=== PATIENT | female | born 1940 | race Caucasian/White ===

== ENCOUNTER 2018-04-29 19:37 | Emergency (ER) | payer MEDICARE, SELFPAY ==
[2018-04-29 19:38] VITALS: BP 153/116; PULSE 81; RESP 22; TEMP 36.8; BMI 23.6
--- NOTE | 2018-04-29 19:51 | EKG12_ITS ---
Test Reason : CP Blood Pressure : / mmHG Vent. Rate : 068 BPM Atrial Rate : 068 BPM P-R Int : 156 ms QRS Dur : 074 ms QT Int : 396 ms P-R-T Axes : 037 -24 024 degrees QTc Int : 421 ms Normal sinus rhythm Leftward axis Confirmed by BLU PECK, ZACKARY ([id number]), development editor JESSICA KNAPP ([id number]) on 05/02/2018 11:26:07 AM Referred By: Confirmed By:ZACKARY HURT MD
--- NOTE | 2018-04-29 19:51 | CT_ITS ---
STUDY: CT ABDOMEN AND PELVIS WITHOUT CONTRAST REASON FOR EXAM: Female, 77 years old. Left lower quadrant pain RADIATION DOSAGE (If Supplied By Facility): CTDIvol = ( 7.01 ) mGy, DLP = ( 318.61 ) mGycm TECHNIQUE: Transaxial images were obtained from the dome of the diaphragm to the symphysis pubis without oral contrast, and without intravenous contrast. Sagittal and coronal images were reconstructed. Individualized dose optimization techniques were used for this CT. COMPARISON: 12/31/2016 FINDINGS: The visualized lung bases are unremarkable. The visualized portions of the heart are within normal limits. Normal liver. There is non-visualization of the gallbladder, which may be secondary to either contraction or a prior cholecystectomy. Normal spleen. Normal pancreas. Normal bilateral adrenal glands. Normal right kidney. Stable punctate nonobstructing left nephrolithiasis. Otherwise, normal left kidney. Stable moderate hiatal hernia. Otherwise, normal stomach Normal small intestine. There are multiple colonic diverticula consistent with diverticulosis. There is non-visualization of the appendix. There is diffuse atherosclerotic calcification of the abdominal aorta, without a demonstrated aneurysm. Normal inferior vena cava. Normal retroperitoneum. Normal urinary bladder. There is absence of the uterus consistent with a prior hysterectomy. Normal abdominal wall. There are diffuse degenerative changes of the visualized lumbar spine. Mild compression deformity of the superior endplate of L4, chronic in nature. CT/Abdomen/Pelvis without Cont IMPRESSION: 1. No acute findings or the abdomen and pelvis. No evidence of diverticulitis 2. Nonvisualized gallbladder 3. No evidence of obstruction Electronically Signed: Dean Garcia DO at 20:51 EDT Tel , Service support ,
--- NOTE | 2018-04-29 20:16 | RAD_ITS ---
STUDY: X-RAY CHEST REASON FOR EXAM: Female, 77 years old. Chest pain TECHNIQUE: Single AP portable view of the chest. COMPARISON: None. FINDINGS: Moderately sized hiatal hernia. The lungs are clear and expanded. There is no demonstrated pleural abnormality. There is borderline cardiomegaly. Normal mediastinum and callie. Normal visualized pulmonary arteries. Normal visualized aortic arch and descending thoracic aorta. Normal visualized thoracic spine. Normal visualized ribs, clavicles, and shoulders. There is no demonstrated abnormality of the visualized soft tissue structures of the upper abdomen. RAD/Chest 1 View (Portable) IMPRESSION: No acute cardiopulmonary disease. Moderate hiatal hernia. Electronically Signed: Dean Garcia DO at 20:32 EDT Tel , Service support ,
[2018-04-29] MEDS: 0.9% Normal Saline 1,000 ML 150 ML IV (20:22)
[2018-04-29 20:33] LABS: Absolute Lymphocyte Count 1.31 X10^3/ul (0.83-4.51); Basophil# 0.02 X10^3/uL; Basophil% 0.3 % (0-1); Eosinophil# 0.09 X10^3/uL; Eosinophils% 1.3 % (0-5); Hematocrit 40.6 % (37-47); Hemoglobin 13.1 g/dl (12.0-15.0); Lymphocyte # 1.31 X10^3/ul (4.0); Lymphocyte % 18.4 % (19-41); Mean Corp Hgb Conc 32.3 g/gl (32-36); Mean Corpuscular Hgb 30.5 pg (27.0-32.0); Mean Corpuscular Volume 94.4 fL (81-99); Mean Platelet Vol. 9.5 fl (6.2-12.0); Monocyte# 0.71 X10^3/uL; Neutrophil # 4.99 X10^3/uL (2.7-7.7); Platelet Count 253 K/mm3 (150-450); RBC Distribution Width SD 44.3 fl (35.1-43.9); White Blood Count 7.1 K/mm3 (4.4-11.0)
[2018-04-29 20:36] LABS: POSITIVE COUNT NO; POSITIVE DIFFERENTIAL NO; POSITIVE MORPHOLOGY NO
[2018-04-29 20:57] LABS: Anion Gap 9 (5-15); BUN 13 mg/dL (7-18); BUN/Creat Ratio 13.8 RATIO (10-20); Calcium,Total 8.9 mg/dL (8.5-10.1); Chloride 109 mmol/L (98-107); Creatinine, Serum 0.94 mg/dL (0.55-1.02); EST Glomerular Filtration Rate 62 mL/min (>60); Est Glom Filt Rate - Afr Amer 74 mL/min (>60); Estimated Creatinine Clearance 38.42 ml/min; Glucose 117 mg/dL (74-106); Sodium Level 141 mmol/L (136-145)
[2018-04-29 22:25] LABS: Bacteria 0 SEEN /hpf (None Seen); Mucous, Urine 0 SEEN /hpf (<or=2+); Red Blood Cells-Urine 0 SEEN /hpf (0-5); White Blood Cells 0 SEEN /hpf (0-5)
[2018-04-29 22:31] LABS: Color, Urine Yellow (Yellow); Glucose, Dipstick Normal (Normal); Ketone-Dipstick Negative (Negative); Leukocyte Esterase-Dipstick Negative /ul (Negative); Nitrite-Dipstick Negative (Negative); Occult Blood-Urine Negative /ul (Negative); Protein-Dipstick Negative (Negative); Urine Bilirubin Dipstick Negative (Negative); Urine Clarity Clear (Clear); Urine Urobilinogen Normal (Normal)
[2018-04-29 22:38] LABS: Squamous Epithelial Cells - UA 0-5 SEEN /hpf (5-10)
--- NOTE | 2018-04-29 22:46 | ED.DCSUM_ITS ---
- ER Visit Summary Date of Service: 04/29/18 Chief Complaint: Abdominal pain History of Present Illness: The patient is a 77 F is had problems with intermittent lower abdominal pain for some time. Today she had a lower abdominal pain but then it radiated to the epigastric area near her heart. This concerned her so she came in. She denies nausea, vomiting, or diarrhea. She denies fever or chills. She has not had urinary symptoms. Physical Examination: Blood pressure on arrival is 153/116, other vitals normal. Patient sitting upright in bed no acute distress. Head neck examination unremarkable. Heart is regular rate and rhythm. lung sounds clear. Abdomen is soft nontender. She has active bowel sounds throughout. Test Results: Chest x-ray shows no acute cardiopulmonary disease. There is a moderate hiatal hernia noted. CT flank shows no acute findings. EKG is sinus at 68 with no sign of acute ischemia. CBC and chemistry studies unremarkable. Urinalysis normal. Emergency Department Course and Treatment: Patient received IV fluids here. On repeat evaluation she is resting comfortably. I did ensure the patient is currently on an antacid for her hiatal hernia. She will continue this. Treatment Plan: [] Disposition: Discharge Impression: 1. Abdominal pain, uncertain etiology 2. Hiatal hernia This note was generated with [employer] dictation software. It may contain incorrect words, spelling, and punctuation that were not noted in review of the chart prior to signing ED Disposition - Plan for ED Patient: Disposition: Home or Assisted Living Chief Complaint: Abd Pain Instructions: What Is a Hiatal Hernia?, ED Abdominal Pain Unkn Cause Referrals: Barrington Flores MD [Primary Care Provider] - 3-5 Days if not improving
--- NOTE | 2018-04-29 22:46 | ED.DEP ---
ED Disposition - Plan for ED Patient: Disposition: Home or Assisted Living Chief Complaint: Abd Pain Instructions: ED Abdominal Pain Unkn Cause, What Is a Hiatal Hernia? Referrals: Barrington Flores MD [Primary Care Provider] - 3-5 Days if not improving
[2018-04-29 23:04] VITALS: BP 155/74; PULSE 74; PULSE 76; RESP 16; O2SAT 95
== END 2018-04-29 23:10 | disposition home or self-care (01) ==
PROVIDERS: Emergency Provider Emergency Medicine; Family Provider Internal Medicine; PCP Internal Medicine
DX: K44.9 Diaphragmatic hernia without obstruction or gangrene (principal); R10.30 Lower abdominal pain, unspecified; Z87.891 Personal history of nicotine dependence
CPT/HCPCS: 71045; 74176; 80048; 81001; 85025; 93005; 96360; 99285; J7030

== ENCOUNTER → 2019-08-22 | Outpatient (CLI) | payer MEDICARE, SELFPAY ==
--- NOTE | 2019-08-22 06:54 | CT_ITS ---
STUDY: CT SCAN RIGHT HIP AND PELVIS REASON FOR EXAM: Female, 79 years old. RIGHT HIP PAIN. [facility] PROTOCOL RADIATION DOSAGE (If Supplied By Facility): CTDIvol = ( 13.79 ) mGy, DLP = ( 788.57 ) mGycm. Individualized dose optimization techniques were used for this CT.? TECHNIQUE: 2.5 mm helical cuts were performed through the pelvis without contrast. MPR performed. COMPARISON: CT scan of the abdomen and pelvis from 04/29/2018 FINDINGS: The bones are demineralized. Degenerative changes noted in the visualized lumbar spine. There is symmetric SI joint arthrosis. No demonstrated fracture or suspicious lesion in the sacrum, coccyx or either iliac bone. There is severe bilateral hip arthrosis. Surgical hardware in the left femur from previous subcapital femoral neck fracture intact and free of complication, that fracture has healed. There is no acute fracture in either femur or the pelvis. Coronal recon images show subchondral sclerotic changes and cyst formation in both the right femoral head and acetabulum, there is slight flattening of the right femoral head. These findings are consistent with AVN. There are small degenerative spurs on the posterior and anterior acetabulum. There are subchondral sclerotic changes in the left acetabulum and left femoral head but not to the degree noted on the right and there is no left femoral head flattening. The soft tissue windows show colonic diverticulosis without CT evidence of acute diverticulitis. No free fluid or air noted. No hernia or adenopathy noted. CT/Extremity Lower without Contra IMPRESSION: Severe right hip arthrosis with changes consistent with AVN. Slightly less severe left hip arthrosis, there are also changes suggestive of AVN in the left hip but not to the extent noted on the right. No demonstrated femoral or pelvic fracture Colonic diverticulosis Electronically Signed: Kendrick Jay MD at 8:30 EST , Service support ,
== END | disposition home or self-care (01) ==
PROVIDERS: PCP Internal Medicine; Referring Provider Specialist; Visit Provider Specialist
DX: M16.11 Unilateral primary osteoarthritis, right hip (principal); M87.851 Other osteonecrosis, right femur
CPT/HCPCS: 73700

== ENCOUNTER 2019-08-27 05:13 | Day surgery (SDC) | payer MEDICARE, SELFPAY ==
[2019-08-15 15:23] VITALS: BP 141/66; PULSE 80; RESP 17; TEMP 37.1; O2SAT 96; BMI 23.8
--- NOTE | 2019-08-15 15:46 | SDCEKG_ITS ---
Test Reason : Blood Pressure : / mmHG Vent. Rate : 069 BPM Atrial Rate : 069 BPM P-R Int : 160 ms QRS Dur : 072 ms QT Int : 420 ms P-R-T Axes : 046 -29 010 degrees QTc Int : 450 ms Somatic vs. motion Artifiact Sinus rhythm Leftward [place] Poor R-wave progression Confirmed by BLU PECK, ZACKARY ([id number]), editor publications FRANSICO FARNSWORTH ([id number]) on 08/19/2019 8:15:46 AM Referred By: KASI THOMPSON Confirmed By:ZACKARY HURT MD
[2019-08-15 17:05] LABS: Absolute Lymphocyte Count 1.49 X10^3/uL (0.83-4.51); Absolute Neutrophil Count 4.6 X10^3/uL (2.0-7.7); Basophil# 0.02 X10^3/uL; Basophil% 0.3 % (0-1); Eosinophil# 0.07 X10^3/uL; Hematocrit 44.6 % (37-47); Hemoglobin 13.9 g/dL (12.0-15.0); Lymphocyte # 1.49 X10^3/ul (4.0); Lymphocyte % 21.9 % (19-41); Mean Corp Hgb Conc 31.2 g/dL (32-36); Mean Corpuscular Hgb 29.7 pg (27.0-32.0); Mean Corpuscular Volume 95.3 fL (81-99); Mean Platelet Vol. 9.4 fl (6.2-12.0); Monocyte% 8.8 % (0-10); NRBC Flagged by Analyzer 0 % (0-5); Neutrophil % 67.9 % (47-70); Platelet Count 290 K/mm3 (150-450); RBC Distribution Width CV 12.7 % (11.6-14.6); RBC Distribution Width SD 44.7 fl (35.1-43.9); Red Blood Count 4.68 M/mm3 (4.2-5.4); White Blood Count 6.8 K/mm3 (4.4-11.0)
[2019-08-15 17:10] LABS: International Normalized Ratio 1.1; Prothrombin Time (Protime)PT. 13.9 SECONDS (11.7-14.9)
[2019-08-15 17:11] LABS: Partial Thromboplast Time 29.8 Seconds (24.1-36.2)
[2019-08-15 17:12] LABS: AST(SGOT) 17 U/L (15-37); Alanine Aminotransfer ALT/SGPT 22 U/L (13-56); Alkaline Phosphatase 106 U/L (45-117); Anion Gap 4 (5-15); BUN 20 mg/dL (7-18); BUN/Creat Ratio 22.7 RATIO (10-20); Bilirubin, Direct 0.18 mg/dL (0.00-0.30); Calcium,Total 9.5 mg/dL (8.5-10.1); Chloride 113 mmol/L (98-107); Creatinine, Serum 0.88 mg/dL (0.55-1.02); EST Glomerular Filtration Rate 66 mL/min (>60); Est Glom Filt Rate - Afr Amer 80 mL/min (>60); Estimated Creatinine Clearance 37.84 ml/min; Globulin 3.7 g/dL (2.2-4.2); Glucose 133 mg/dL (74-106); Potassium 3.6 mmol/L (3.5-5.1); Protein, Total 7.7 g/dL (6.4-8.2); Sodium Level 142 mmol/L (136-145)
--- NOTE | 2019-08-16 06:47 | PCM.HP.BLA ---
History and Physical History and Physical [facility] Patient Name: Glenda Haile : 1940 From: RORO WILSON PA-C DATE OF SURGERY: 08/27/2019 SCHEDULED PROCEDURE: right total hip arthroplasty HISTORY OF PRESENT ILLNESS: Preoperative history physical exam was performed on August 15, 2019. This is a 79-year-old female who has been having ongoing pain in the right hip for over 2 years. She did have a fall back in December 2017. She does have history of a previous left hip fracture with surgical fixation. Patient's right hip can reach as high as a 9/10. Pain has been intermittent and aching. Patient states she has increased pain going up and down stairs, walking, sitting. She has difficult time with activities of daily living including bathing/showering, getting dressed, housework, and shopping. Pain is located in the right groin and anterior thigh. Patient has fallen in the past. She has tried heat with minimal relief. She has tried oral medications consisting of diclofenac from the primary care physician, minimal to no relief. Patient has required the use of a cane, walker, and wheelchair for the past several years. She denies previous surgery on the right hip. Patient has obtain surgical clearance from the primary care physician Dr. Flores. She has medical history pertinent for hypertension, gastroesophageal reflux disease, thyroid complications, tremors. Patient states they did find an enlarged thyroid and will require removal. He denies any chest pain, shortness of breath, fevers chills, recent infections. After failing conservative measures and discussing treatment options with Dr. Paul Dill, the patient does wish to proceed with a right total hip arthroplasty. REVIEW OF SYSTEMS: ROS: Const: Denies change in appetite, fever and weight change. CV: Denies chest pain, heart murmur and irregular heartbeat. Resp: Denies cough, pneumonia, shortness of breath, tuberculosis and wheezing. GI: Reports constipation, but denies diarrhea, heartburn, nausea, rectal itching, bloody stools and vomiting. : Denies incontinence. Musculo: Reports trouble walking, but denies leg swelling, pain and weakness. Skin: Denies Raynaud's, history of shingles and tattoo. Neuro: Denies ambulatory dysfunction, dizziness, numbness/tingling and tremor. Psych: Denies anxiety, insomnia and stress. Davin/Lymph: Denies anemia, bleeding/bruising tendency and past transfusion. Reviewed, no changes. PAST MEDICAL HISTORY: Advance Care Plan: No Advance Directives Effective Date: 07/17/2019 PMH: Medical Problems: Arthritis, Hard of Hearing, High Blood Pressure, Osteoporosis, Thyroid Disease Accidents: Fracture - HIP AND ELBOW Surgical Hx: Knee Arthroscopy Lt - (1989) Anesthesia Complications: Waking Up Assistive Devices: Glasses, Dentures, Cane, Walker Reviewed, no changes. SOCIAL HISTORY: SH: Marital: .Occupation: Retired.Work Status: Retired.Hand Dominance: Right-handed. Personal Habits: Cigarette Use: Former.Smokeless Tobacco: Never Used Smokeless Tobacco.E-Cigarette Use: Never used.Alcohol: Denies use.Drug Use: Denies Use.Enjoy Exercising: Never Exercises. Reviewed, no changes. VITALS: Ht: 60 Wt: 122lb Wt k.339 BMI: 23.8 BP: 110/68 Pulse: 72 Resp: 12 T: 99.3 T: 37.4C ALLERGIES: No Known Drug Allergy MEDICATIONS: Diclofenac Potassium 50 mg 2 PO qd, Vitamin D 50 mcg (2000 Ut) 1 PO qd, Amlodipine Besylate 10 mg 1 by mouth every day, Levothyroxine Sodium 75 mcg 1 by mouth every day, Omeprazole 40 mg 1 by mouth every day, Latanoprost 0.005 % 2 drops each eye daily PRE-OP EXAM: General appearance:NORMAL Other: Eyes: Conjunctivae and lids: NORMAL Pupils: ERR Ears, Nose, Mouth, and Throat: NORMAL Other: Inspection of lips, teeth and gums: NORMAL Other: Neck: Examination of neck: no masses noted. Respiratory: Assessment of respiratory effort: NORMAL Other: Auscultation of lungs: clear to auscultation no wheezes, rhonchi or rales. Cardiovascular: Auscultation of heart: regular rate and rhythm, no murmurs, gallops or rubs. Exam of carotid arteries: NORMAL Other: Gastrointestinal: Exam of abdomen: soft, nontender, nondistended bowel sounds present. PHYSICAL EXAMINATION: Patient presents to preoperative visit in a wheelchair. She has increased pain with any range of motion of the right hip. There is obligatory external rotation with flexion. Patient has a 10 flexion contracture. Flexion 80, internal rotation 15, external rotation 30. Hip strength 3/5. Right lower extremity is 3 mm shorter compared to the left. Sensation intact to light touch. IMAGING STUDIES: X-rays of the right hip reveal joint space narrowing with subchondral sclerosis and osteophyte formation as well as collapse of the subchondral bone of the weightbearing surface of the femoral head consistent with severe osteoarthritis with evidence of avascular necrosis. there is also evidence of severe left hip osteoarthritis with previous 3 cannulated screws from fracture. IMPRESSION: 1. 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 Left hip osteoarthritis with previous surgery 3. Hypertension 4. Gastroesophageal reflux disease 5. Hypothyroidism 6. Essential tremors PLAN: Dr. Paul Dill did discuss and review with the patient all treatment options including surgical versus nonsurgical options. Patient does wish to proceed with the above-stated procedure. Potential risks, benefits, and complications of the procedure were discussed in detail including but not limited to , infection, nerve and blood vessel damage, persistent pain, numbness, tingling, paresthesias, blood clot, pulmonary embolism, and requirement for possible further surgery. The patient expressed full understanding and has no further questions for the doctor. Patient does agree to proceed with the above-stated procedure and has signed the surgery consent form. This dictation was created using voice recognition software. Phonetic and/or grammatical errors may exist. ___ I have re-examined the patient. There are no clinical changes since date of exam. ___ See progress notes for changes. ___ Dictated on admission Date: Time: Signature:
[2019-08-27] VITALS (20 sets, daily range): BP systolic 101–137; BP diastolic 50–95; PULSE 73–98; RESP 16–18; TEMP 36.6–36.9; O2SAT 92–98; BMI 23.8
[2019-08-27] MEDS: Magnesium Sulfate 4gm/100mL 4 GM/100 ML IV.SOLN. IV (06:06)
[2019-08-27] MEDS: Celecoxib 200 MG Capsule 400 MG PO (06:07)
[2019-08-27] MEDS: Gabapentin 600 MG Tablet PO (06:07)
[2019-08-27] MEDS: Acetaminophen 500 MG Tablet 1000 MG PO (06:08)
[2019-08-27 06:45] LABS: Bedside Glucose 185 mg/dL (70-110)
[2019-08-27] MEDS: Lactated Ringers 1,000 ML 125 ML IV ×3 (06:50→11:15)
[2019-08-27] MEDS: Lactated Ringers 1,000 ML 100 ML IV (06:58)
[2019-08-27 07:56] LABS: Bedside Glucose 85 mg/dL (70-110)
--- NOTE | 2019-08-27 08:14 | RAD_ITS ---
STUDY: X-RAY CHEST REASON FOR EXAM: Female, 79 years old. Low blood pressure, SOB TECHNIQUE: PA and lateral views of the chest. COMPARISON: Comparison is made with prior examination dated April 29, 2018. FINDINGS: EKG electrodes are seen. There is tracheal deviation towards the left side of the midline. This is suggestive of an enlarged left lobe of the thyroid gland. Minimal increased linear markings at the left lung base suggestive of mild scarring. This is unchanged. There is no demonstrated pleural abnormality. Normal size heart. Normal mediastinum and callie. Normal visualized pulmonary arteries. There is atherosclerotic calcification of the aortic arch with tortuosity. There are diffuse degenerative changes of the visualized thoracic spine. There is degenerative osteoarthritis of the bilateral shoulders. Large hiatal hernia. RAD/Chest PA and Lateral IMPRESSION: Stable examination. Large hiatal hernia. Findings suggestive of enlargement of the left lobe of the thyroid. Electronically Signed: Humberto Jensen, at 9:05 EST , Service support ,
[2019-08-27 08:45] LABS: Allen Test POS; Base Excess -3 mmol/L (-2 to +2); Bicarbonate 21.9 mmol/L (22-26); Blood Gas Specimen Type ART; O2 Delivery Device Room Air; PO2 64 mmHG (75-100); SITE L Radial; SO2 92 % (95-99); Time Given 835; Total Carbon Dioxide 23 mmol/L; pCO2 35.9 mmHg (35-45); pH 7.39 (7.35-7.45)
[2019-08-27 08:51] LABS: Albumin, Serum 3.3 g/dL (3.2-5.0); Anion Gap 7 (5-15); BUN 16 mg/dL (7-18); BUN/Creat Ratio 18.9 RATIO (10-20); Calcium,Total 9.2 mg/dL (8.5-10.1); Chloride 108 mmol/L (98-107); Creatinine, Serum 0.85 mg/dL (0.55-1.02); EST Glomerular Filtration Rate 69 mL/min (>60); Est Glom Filt Rate - Afr Amer 84 mL/min (>60); Estimated Creatinine Clearance 39.18 ml/min; Glucose 88 mg/dL (74-106); Magnesium 4.7 mg/dL (1.6-2.6); Potassium 3.8 mmol/L (3.5-5.1); Sodium Level 137 mmol/L (136-145)
--- NOTE | 2019-08-27 09:32 | SUR.PHASEI ---
PT ASSISTED TO SIDE OF BED. HECTOR WELL. THEN UP TO WALK W/ WALK X2 ASSIST. PT HECTOR WELL TO BEING WITH THEN BEGAN TO GET WEEK. PT TO W/C THEN ASSISTED TO BR X2. VOIDED THEN RETURNED TO BED. PY REPORTS HEAD DIZZY WHEN UP WALKING.
[2019-08-27] MEDS: Lactated Ringers 1,000 ML 999 ML IV (11:05)
--- NOTE | 2019-08-27 11:49 | SUR.PHASEII ---
DENIES PAIN OR SHORTNESS OF BREATH, DENIES DIZZINESS OR LIGHT-HEADEDNESS. ASSISTED TO USE BEDPAN TO VOID AT THIS TIME. PATIENT IS RESTLESS, CONSTANTLY MOVING OR FIDGETING WITH MEDICAL EQUIPMENT. PATIENT STATES THIS IS HER TYPICAL AT HOME WELL. STATES SHE'S USUALLY DOING SOMETHING WITH HER HANDS. VITALS STABLE.
== END 2019-08-27 14:48 | disposition home or self-care (01) ==
LOC: SDC 08-28 08:06 → ACINP 08-28 08:07
PROVIDERS: Anesthesiology; Family Provider Internal Medicine; PCP Internal Medicine; Referring Provider Specialist; Visit Provider Specialist
PROC: 8E0Y0CZ Robotic Assisted Procedure of Lower Extremity, Open Approach (ICD-10-PCS; CPT 27130; principal; 2019-08-27 06:45)
DX: Z01.818 Encounter for other preprocedural examination (principal); R42 Dizziness and giddiness; R11.0 Nausea; E03.9 Hypothyroidism, unspecified; I10 Essential (primary) hypertension; M16.0 Bilateral primary osteoarthritis of hip; G25.0 Essential tremor; Z79.899 Other long term (current) drug therapy
CPT/HCPCS: 36415; 36600; 71046; 80048; 80076; 82040; 82803; 82962; 83735; 84443; 84484; 85025; 85610; 85730; 87081; 93005; J7120

== ENCOUNTER 2021-03-26 23:57 | Emergency (ER) | payer MEDICARE, SELFPAY ==
[2021-03-26 23:58] VITALS: BP 136/70; PULSE 92; RESP 20; TEMP 36.6; BMI 25.0
--- NOTE | 2021-03-27 00:12 | CT_ITS ---
STUDY: CT ABDOMEN AND PELVIS WITH CONTRAST REASON FOR EXAM: Female, 80 years old. LLQ pain RADIATION DOSAGE (If Supplied By Facility): CTDIvol = ( 14.36 ) mGy, DLP = ( 856.37 ) mGycm TECHNIQUE: Transaxial images were obtained from the dome of the diaphragm to the symphysis pubis without oral contrast. IV 25mL [id number] was administered. Sagittal and coronal images were reconstructed. Individualized dose optimization techniques were used for this CT. COMPARISON: 04/29/2018 FINDINGS: The visualized lung bases are unremarkable. Partially visualized coronary artery calcifications. Normal liver. There is non-visualization of the gallbladder, which may be secondary to either contraction or a prior cholecystectomy. Normal spleen. Normal pancreas. Normal bilateral adrenal glands. Normal right kidney. 7 mm left renal collecting system calculus with mild hydronephrosis. Scattered bilateral nonobstructing renal collecting system calculi. Moderate size hiatal hernia. Normal small intestine. There are multiple colonic diverticula consistent with diverticulosis. There is non-visualization of the appendix. There is diffuse atherosclerotic calcification of the abdominal aorta, without a demonstrated aneurysm. Normal inferior vena cava. Normal retroperitoneum. Normal urinary bladder. There is absence of the uterus consistent with a prior hysterectomy. Normal abdominal wall. There are diffuse degenerative changes of the visualized lumbar spine. Left femoral neck ORIF noted. Severe bilateral hip osteoarthritis. CT/Abdomen/Pelvis W IV Cont ONLY IMPRESSION: Left UPJ obstructing calculus with mild hydronephrosis. Moderate size hiatal hernia. Electronically Signed: Roddy Mayorga MD at 1:49 EDT Tel , Service support ,
[2021-03-27 00:30] LABS: Absolute Lymphocyte Count 1.33 X10^3/uL (0.83-4.51); Absolute Neutrophil Count 6.8 X10^3/uL (2.0-7.7); Basophil# 0.04 X10^3/uL; Basophil% 0.4 % (0-1); Eosinophil# 0.11 X10^3/uL; Eosinophils% 1.2 % (0-5); Hematocrit 43.3 % (37-47); Lymphocyte # 1.33 X10^3/ul (0.83-4.51); Lymphocyte % 14.7 % (19-41); Mean Corp Hgb Conc 32.3 g/dL (32-36); Mean Corpuscular Hgb 30.4 pg (27.0-32.0); Mean Corpuscular Volume 93.9 fL (81-99); Mean Platelet Vol. 9.2 fl (6.2-12.0); Monocyte% 7.8 % (0-10); NRBC Flagged by Analyzer 0 % (0-5); Neutrophil # 6.79 X10^3/uL (2.7-7.7); Neutrophil % 75.2 % (47-70); Platelet Count 326 K/mm3 (150-450); RBC Distribution Width CV 12.2 % (11.6-14.6); Red Blood Count 4.61 M/mm3 (4.2-5.4)
[2021-03-27] MEDS: Ondansetron 4 MG/2 ML Vial IV (00:38)
[2021-03-27] MEDS: Morphine 2 MG/ML Syringe IV (00:38)
[2021-03-27] MEDS: 0.9% Normal Saline 1,000 ML 999 ML IV (00:41)
[2021-03-27 00:46] LABS: AST(SGOT) 14 U/L (15-37); Alanine Aminotransfer ALT/SGPT 17 U/L (13-56); Albumin, Serum 3.7 g/dL (3.2-5.0); Alkaline Phosphatase 104 U/L (45-117); Anion Gap 10 (5-15); BUN 16 mg/dL (7-18); BUN/Creat Ratio 13.8 RATIO (10-20); Bilirubin, Direct 0.22 mg/dL (0.00-0.30); Calcium,Total 9.6 mg/dL (8.5-10.1); Chloride 105 mmol/L (98-107); Creatinine, Serum 1.16 mg/dL (0.55-1.02); EST Glomerular Filtration Rate 48 mL/min (>60); Est Glom Filt Rate - Afr Amer 58 mL/min (>60); Estimated Creatinine Clearance 28.25 ml/min; Globulin 4.1 g/dL (2.2-4.2); Glucose 123 mg/dL (74-106); Lipase 127 U/L (73-393); Potassium 3.8 mmol/L (3.5-5.1); Protein, Total 7.8 g/dL (6.4-8.2); Sodium Level 140 mmol/L (136-145)
[2021-03-27 02:08] LABS: Mucous, Urine 0 SEEN /hpf (<or=2+); Squamous Epithelial Cells - UA 0 SEEN /hpf (5-10)
[2021-03-27 02:12] LABS: Color, Urine Brown (Yellow); Glucose, Dipstick Normal (Normal); Ketone-Dipstick 5 mg/dl (Negative); Leukocyte Esterase-Dipstick 100 /ul (Negative); Nitrite-Dipstick Positive (Negative); Occult Blood-Urine 250 /ul (Negative); Protein-Dipstick 100 mg/dl (Negative); Urine Clarity Turbid (Clear); Urine Urobilinogen 1 mg/dl (Normal)
[2021-03-27 02:14] LABS: Urine Bilirubin Dipstick 1 mg/dL (Negative)
[2021-03-27 02:57] LABS: Bacteria 2+ /hpf (None Seen); Red Blood Cells-Urine > 100 SEEN /hpf (0-5); White Blood Cells 0-5 SEEN /hpf (0-5)
[2021-03-27 03:16] VITALS: BP 127/74; PULSE 75; RESP 16; O2SAT 94
--- NOTE | 2021-03-27 03:43 | EDS_ITS ---
HPI History of Present Illness Chief Complaint: Abd Pain Narrative Narrative: Patient is a 80-year-old female who was at home this evening. She states she ate a few chips and drank a little bit of water and then noticed some pain in the left lower abdomen. She states that there is been no trauma and she denies any dysuria or hematuria. She reports she does have a history of constipation but has been more on the diarrhea side at this time. She denies any fevers or chills but with the pain was concerned there was a possible infectious process going on and therefore comes in for evaluation [facility] Medical History GERD (gastroesophageal reflux disease) Hypertension Hypothyroidism Home Medications omeprazole 40 mg PO DAILY 03/27/17 [History Last Taken 08/27/19] cholecalciferol (vitamin D3) 1,000 unit PO DAILY 08/15/19 [History Last Taken Unknown] diclofenac sodium 50 mg PO BIDCM PRN 08/15/19 [History Last Taken Unknown] latanoprost 1 drp EACH EYE QHS 08/15/19 [History Last Taken Unknown] levothyroxine 37.5 mcg PO SUSA 08/15/19 [History Last Taken 08/27/19] levothyroxine 75 mcg PO MOTUWETHFR 08/15/19 [History Last Taken 08/27/19] amlodipine-benazepril 1 cap PO DAILY 03/27/21 [History Last Taken Unknown] cephalexin 500 mg PO TID 7 Days #21 cap 03/27/21 [Rx Last Taken Unknown] hydrocodone-acetaminophen 1 tab PO Q6H PRN 3 Days #12 tab 03/27/21 [Rx Last Taken Unknown] tamsulosin [Flomax] 0.4 mg PO DAILY #14 cap 03/27/21 [Rx Last Taken Unknown] Allergy/AdvReac Type Severity Reaction Status Date / Time aspirin Allergy my heart Verified 03/27/21 00:01 races and they told me to never take it again Social History Smoking Status: Former smoker ROS ROS ED Constitutional Constitutional ED: Denies chills or fever(s) ENT ENT ED: Denies sore throat Cardiovascular Cardiovascular: Denies chest pain Respiratory/Chest Respiratory/Chest: Denies cough or dyspnea Gastrointestinal Gastrointestinal: Reports abdominal pain, constipation and diarrhea; Denies nausea or vomiting Genitourinary Genitourinary ED: Denies dysuria or hematuria Musculoskeletal Musculoskeletal: Reports back pain; Denies myalgias Integumentary Denies rash Neurologic Neurologic: Denies headache(s) Hematologic/Lymphatic Hematologic/Lymphatic: Denies easy bleeding or easy bruising EXAM Physical Exam Const Vital Signs: 03/26/21 23:58 03/27/21 03:16 Temperature 97.8 F Temperature Source Temporal Pulse Rate 92 75 Respiratory Rate 20 H 16 Blood Pressure 136/70 H 127/74 H Blood Pressure Mean 92 91 Pulse Ox 94 Oxygen Delivery Method Room Air Positive well nourished and well developed General Appearance ED: well developed HEENT Reports moist mucous membranes Eyes PERRL and EOMs intact bilaterally Neck supple Resp normal respiratory effort and clear to auscultation bilaterally Cardio regular rate and regular rhythm GI normal to inspection, nondistended, normoactive bowel sounds and non-distended; Negative for non-tender GI Narrative: Abdomen is soft and nondistended with normal active bowel sounds. There is pain with palpation in the left lower quadrant with voluntary guarding at the site. No pulsatile mass noted no rigidity noted Auscultation: normoactive bowel sounds Palpation: soft Back/Spine Back/Spine Narrative: Positive left CVA pain present Extremity normal to inspection Neuro oriented x3 and CN's II-XII intact bilaterally Sensorium / Orientation: alert Psych mental status grossly normal Skin no rashes or lesions noted MDM MDM MDM Narrative Medical decision making narrative: Patient presented to the ER afebrile but did have pain that came on suddenly in the left lower quadrant with voluntary guarding. With her mild flank pain I felt this was most likely secondary to a kidney stone based on his sudden onset. However as there is concern this could be related to intestinal infection because of her history of constipation and diarrhea elected to perform basic labs with a CT scan. Labs showed blood within the urine consistent with stone but also infectious process. Creatinine was slightly elevated at 1.16 but not high enough to suggest acute kidney injury. CT scan confirmed a stone on the left with mild hydronephrosis. At this time the patient is not uroseptic and does not have acute kidney injury so there is no need for emergent urology consultation or inpatient treatment. Patient replaced on antibiotics Flomax and pain control and will be discharged with outpatient urology follow-up. Lab Data Labs: Laboratory Results - last 24 hr 03/26/21 03/26/21 03/27/21 23:43 23:43 02:03 WBC 9.0 RBC 4.61 Hgb 14.0 Hct 43.3 MCV 93.9 MCH 30.4 MCHC 32.3 RDW Std Deviation 42.0 RDW Coeff of Jesse 12.2 Plt Count 326 MPV 9.2 Immature Gran % (Auto) 0.700 Neut % (Auto) 75.2 H Lymph % (Auto) 14.7 L Blair % (Auto) 7.8 Eos % (Auto) 1.2 Baso % (Auto) 0.4 Absolute Neuts (auto) 6.8 Absolute Lymphs (auto) 1.33 Nucleated RBC % 0 Sodium 140 Potassium 3.8 Chloride 105 Carbon Dioxide 25.0 Anion Gap 10 BUN 16 Creatinine 1.16 H Estim Creat Clear Calc 28.25 Est GFR (MDRD) Af Amer 58 L Est GFR (MDRD) Non-Af 48 L BUN/Creatinine Ratio 13.8 Glucose 123 H Calcium 9.6 Total Bilirubin 0.90 Direct Bilirubin 0.22 AST 14 L ALT 17 Alkaline Phosphatase 104 Total Protein 7.8 Albumin 3.7 Globulin 4.1 Lipase 127 Urine Color Brown Urine Clarity Turbid Urine pH 5.0 Ur Specific [place] 1.020 Urine Protein 100 H Urine Glucose (UA) Normal Urine Ketones 5 H Urine Occult Blood 250 H Urine Nitrite Positive H Urine Bilirubin 1 H Urine Urobilinogen 1 H Ur Leukocyte Esterase 100 H Urine RBC > 100 SEEN Urine WBC 0-5 SEEN Ur Squamous Epith Cells 0 SEEN Urine Bacteria 2+ Urine Mucus 0 SEEN Radiography Diagnostic Testing: Radiology Impression Abdomen/Pelvis CT 03/27/21 00:12 IMPRESSION: Left UPJ obstructing calculus with mild hydronephrosis. Moderate size hiatal hernia. Electronically Signed: Roddy Mayorga MD at 1:49 EDT Tel , Service support , Discharge Plan Triage Chief Complaint: Abd Pain ED Provider: Adi Ortega Dx/Rx/DC Orders Clinical Impression: Kidney stone on left side, Renal colic, Acute UTI Instructions: ED Kidney Stone w/ Colic Prescriptions: New cephalexin 500 mg capsule 500 mg PO TID 7 Days Qty: 21 RF: 0 tamsulosin [Flomax] 0.4 mg capsule 0.4 mg PO DAILY Qty: 14 RF: 0 hydrocodone-acetaminophen 5-325 mg tablet 1 tab PO Q6H PRN (Reason: pain) 3 Days Qty: 12 RF: 0 No Action omeprazole 40 MG capsule,delayed release(DR/EC) 40 mg PO DAILY RF: 0 latanoprost 1 DROP bottle 1 drp EACH EYE QHS RF: 0 diclofenac sodium 50 MG tablet 50 mg PO BIDCM PRN (Reason: Pain Or Fever) RF: 0 levothyroxine 75 MCG tablet 75 mcg PO MOTUWETHFR RF: 0 levothyroxine 75 MCG tablet 37.5 mcg PO SUSA RF: 0 cholecalciferol (vitamin D3) 1,000 UNIT tablet 1,000 unit PO DAILY RF: 0 amlodipine-benazepril 5-10 mg capsule 1 cap PO DAILY RF: 0 Primary Care Provider: Barrington Flores Referrals: Slime Garza MD [STAFF PHYSICIAN] - 3-5 Days Barrington Flores MD [Primary Care Provider] - Activity Restrictions/Additional Instructions: Please return to the ER if your pain is not controlled or you develop a fever over 100.4 Disposition Disposition: Home, Self Care
[2021-03-27] MEDS: Ceftriaxone 1 GM/50 ML BAG IV (04:14)
[2021-03-27 05:13] VITALS: BP 124/79; PULSE 81; RESP 20; O2SAT 97
--- NOTE | 2021-03-27 05:14 | ED.RN ---
THIS NURSE REVIEWED D/C INSTRUCTIONS WITH PT AND FAMILY. BOTH VERBALIZED UNDERSTANDING OF INSTRUCTIONS. IV D/C. IV CATHETER INTACT. PT TOLERATED WELL. PT DENIES FURTHER NEEDS OR QUESTIONS AT THIS TIME. PT ASSISTED TO FAMILY VEHICLE VIA W/C
== END 2021-03-27 05:15 | disposition home or self-care (01) ==
PROVIDERS: Emergency Provider Emergency Medicine; PCP Internal Medicine
DX: N13.2 Hydronephrosis with renal and ureteral calculous obstruction (principal); N39.0 Urinary tract infection, site not specified; K21.9 Gastro-esophageal reflux disease without esophagitis; I10 Essential (primary) hypertension; E03.9 Hypothyroidism, unspecified; Z79.899 Other long term (current) drug therapy; Z87.891 Personal history of nicotine dependence
CPT/HCPCS: 74177; 80048; 80076; 81001; 83690; 85025; 96361; 96365; 96375; 99285; J7030; J7050; Q9967; A4216; J2405

== ENCOUNTER 2021-04-01 05:43 | Day surgery (SDC) | payer MEDICARE, SELFPAY ==
[2021-04-01 06:23] VITALS: BP 152/78; PULSE 98; RESP 16; TEMP 37.1; O2SAT 95; BMI 24.0
[2021-04-01] MEDS: Lactated Ringers 1,000 ML 100 ML IV ×2 (06:32→09:06)
--- NOTE | 2021-04-01 07:30 | PCM.HP.STD ---
HPI - General HPI Narrative EVAN MOE, is a 80 F who presents For definitive management of a left renal calculus with hydronephrosis found when she presented to the emergency room with pain.she reports she is still having pain. No fevers or chills. [facility] Medical History (Updated 04/01/21 @ 07:[address] Slime Garza MD) Arthritis Back pain Former smoker Gastric reflux GERD (gastroesophageal reflux disease) History of diverticulitis History of hiatal hernia History of pain when walking Hx of fracture of left hip Hydronephrosis Hypertension Hypothyroidism Post-menopausal Rheumatoid arthritis Thyroid disease Walker as ambulation aid Wears dentures Wears glasses Home Medications omeprazole 40 mg PO DAILY 03/27/17 [History Last Taken 04/01/21 05:15] cholecalciferol (vitamin D3) 1,000 unit PO DAILY 08/15/19 [History Last Taken Unknown] latanoprost 1 drp EACH EYE QHS 08/15/19 [History Last Taken Unknown] levothyroxine 37.5 mcg PO SUSA 08/15/19 [History Last Taken 08/27/19] levothyroxine 75 mcg PO MOTUWETHFR 08/15/19 [History Last Taken 04/01/21 05:15] amlodipine-benazepril 1 cap PO DAILY 03/27/21 [History Last Taken 04/01/21 05:15] cephalexin 500 mg PO TID 7 Days #21 cap 03/27/21 [Rx Last Taken Unknown] Allergy/AdvReac Type Severity Reaction Status Date / Time aspirin Allergy my heart Verified 04/01/21 06:21 races and they told me to never take it again Surgical History Hx laparoscopic cholecystectomy Hx of colonoscopy Hx of elbow replacement Hx of elbow surgery Hx of esophagogastroduodenoscopy Hx of hysterectomy Social History Smoking Status: Former smoker ROS Constitutional Constitutional: Denies chills or fever(s) Eyes Eyes: Reports systems reviewed and no addt'l complaints, except as documented ENT HEENT: Reports systems reviewed and no addt'l complaints, except as documented Cardiovascular Cardiovascular: Denies dyspnea, irregular heart rhythm, nausea or vomiting Respiratory/Chest Respiratory/Chest: Denies chest congestion, chest tightness, cough or dyspnea Gastrointestinal Gastrointestinal: Reports abdominal pain; Denies change in stool character Genitourinary Genitourinary: Denies dysuria, hematuria, urinary frequency or urinary urgency Musculoskeletal Musculoskeletal: Reports systems reviewed and no addt'l complaints, except as documented Integumentary Integumentary: Reports systems reviewed and no addt'l complaints, except as documented Neurologic Neurologic: Reports systems reviewed and no addt'l complaints, except as documented Vital Signs Vital Signs Vital Signs: 04/01/21 06:23 Temperature 98.8 F Temperature Source Oral Pulse Rate 98 Respiratory Rate 16 Respiratory Pattern Normal Blood Pressure 152/78 H Blood Pressure Mean 102 Blood Pressure Source Monitor Blood Pressure Position Sitting Blood Pressure Location Left Arm Pulse Ox 95 Oxygen Delivery Method Room Air Weight Weight: 55.8 kg Body Mass Index (BMI) 24.0 Physical Exam Const alert, oriented x3 and no apparent distress General Appearance: cooperative HEENT normocephalic, head/scalp atraumatic and hearing grossly normal bilaterally Nose: external nose normal External Ear: external ears normal Eyes General Eye: normal appearance of both eyes Neck supple General: trachea midline Lymph Lymphatic: no lymphedema noted Chest inspection of chest normal Chest: symmetrical chest wall rise Resp normal respiratory effort, normal air movement, no retractions and no use of accessory muscles Cardio regular rate and regular rhythm GI soft to palpation and non-distended external exam normal Extremity normal to inspection Skin no rashes or lesions noted, no wounds, skin turgor normal, no jaundice, no petechiae and no mottling Neuro oriented x3 and CN's II-XII intact bilaterally Assessment & Plan Assessment/Plan (1) Kidney stone on left side: (2) Renal colic: (3) Hydronephrosis: PLAN: Proceed with cystoscopy, left ureteral stent insertion left renal extracorporal shockwave lithotripsy. Informed consent was obtained.
--- NOTE | 2021-04-01 08:04 | PCM.OPRPT ---
Problems Associated Problem List Diagnoses (1) Hydronephrosis: (2) Kidney stone on left side: Report of Operation Date of Procedure: 04/01/21 Pre-Operative Diagnosis: Left renal calculus, left hydronephrosis Post-Operative Diagnosis: Same Surgery/Procedure Performed:: Cystoscopy, left ureteral stent insertion, left renal extracorporal shockwave lithotripsy Surgeon: Slime Garza Type of Anesthesia: General Description of Procedure: The patient is a 80-year-old female who presented to the office after being discharged from the emergency room where she was diagnosed with the obstructing left renal calculus. She continues to have left-sided abdominal pain though less than it was in the emergency room. Informed consent was obtained for management. Her daughter was present for the visit and discussion. The patient was taken the operating room and placed on the operating room table. Anesthesia monitored the head, neck, airway, IV access and vital signs throughout the case. Once anesthesia was appropriate ministered the patient was placed into dorsal lithotomy position was prepped and draped in usual sterile fashion. A cystourethroscopy was performed through the urethra under direct visualization. The bladder mucosa was visualized in its entirety. There were no lesions, areas of erythema, foreign body or abnormality identified. The ureteral orifices were located in the area of the trigone in correct anatomic position. The left ureteral orifice was intubated with 8.035 Glidewire. There were no 6 [place] stents available in her size. A 4.5 [place] 22 cm JJ stent was inserted without difficulty using fluoroscopic visualization. At this time the patient's bladder was emptied and the cystoscope was removed. The patient was repositioned in a supine fashion with a wedge under her legs. The stone was aligned with a lithotripter and 3000 shocks were applied. Patient tolerated the procedure well. There were no complications during the procedure. She was awakened and taken to recovery room in good condition. Grafts/Implants Used: 4.5 x 22 JJ stent Complications None Admit VTE Documentation VTE Present on Admission: Yes VTE Mechan Device Prophylaxis: SCD's VTE Pharm Prophylaxis ordered?: No Reason prophylaxis not ordered:: Treatment Not Indicated
--- NOTE | 2021-04-01 08:08 | PCM.DC ---
Discharge Instructions Diet Discharge Diet: No restrictions Activity Discharge Activity: Return to Normal Activity Dressing / Incision Call your doctor if you observe: Fever of 101 or Higher, Inability to urinate, Inability to have a bowel movement and Uncontrolled pain Follow Up Care Please Follow Up With: Slime Garza MD When: In the office in 2 to 3 weeks with a KUB Test Results: Test results from this visit will be discussed in further detail at your follow-up appointment, if applicable. Discharge Plan Admission Attending Provider: Slime Garza Primary Care Provider: Barrington Flores Discharge Orders/Prescriptions Prescriptions: New oxycodone-acetaminophen [Percocet] 5-325 mg tablet 1 tab PO Q8H PRN (Reason: pain) 5 Days Qty: 10 RF: 0 phenazopyridine [phenazopyridine] 100 MG tablet 100 mg PO TID PRN (Reason: pain (scale score 4-6)) 15 Days Qty: 30 RF: 0 Continued omeprazole 40 MG capsule,delayed release(DR/EC) 40 mg PO DAILY RF: 0 latanoprost 1 DROP bottle 1 drp EACH EYE QHS RF: 0 levothyroxine 75 MCG tablet 75 mcg PO MOTUWETHFR RF: 0 levothyroxine 75 MCG tablet 37.5 mcg PO SUSA RF: 0 cholecalciferol (vitamin D3) 1,000 UNIT tablet 1,000 unit PO DAILY RF: 0 amlodipine-benazepril 5-10 mg capsule 1 cap PO DAILY RF: 0 cephalexin 500 mg capsule 500 mg PO TID 7 Days Qty: 21 RF: 0 Referrals / Follow Up: Barrington Flores MD [Primary Care Provider] - Disposition Disposition (needs filled in before D/C Order can be placed): Home, Self Care
[2021-04-01 08:58] VITALS: BP 134/84; BP 152/78; PULSE 103; RESP 16; TEMP 36.3; O2SAT 99
[2021-04-01 09:15] VITALS: BP 118/82; BP 152/78; PULSE 84; RESP 16; O2SAT 92
[2021-04-01 09:30] VITALS: BP 131/85; BP 152/78; PULSE 94; RESP 16; TEMP 35.8; O2SAT 92
[2021-04-01 10:12] VITALS: BP 145/85; BP 152/78; PULSE 99; RESP 16; TEMP 36.8; O2SAT 94
== END 2021-04-01 10:14 | disposition home or self-care (01) ==
LOC: SDC 05:45 → AC 05:45
PROVIDERS: PCP Internal Medicine; Referring Provider Urology; Visit Provider Urology
PROC: (CPT 50590; principal; 2021-04-01 07:20)
DX: N13.2 Hydronephrosis with renal and ureteral calculous obstruction (principal); M19.90 Unspecified osteoarthritis, unspecified site
CPT/HCPCS: J7120; J2405

== ENCOUNTER 2021-04-01 21:11 | Emergency (ER) | payer MEDICARE, SELFPAY ==
[2021-04-01 21:13] VITALS: BP 140/93; PULSE 106; RESP 16; TEMP 36; O2SAT 95; BMI 25.2
--- NOTE | 2021-04-01 22:21 | EX.ED.DYSGE1 ---
HPI History of Present Illness Chief Complaint: Other, Pain/Inj Informant: patient and family Narrative Narrative: 80-year-old female underwent lithotripsy and stent placement on the left by Dr. Garza this morning. She states she arrived home around 1030 11:00 this morning. She states that she took a Percocet around 1500 hrs. This evening she states the pain acutely became worse she was experiencing nausea. Family brought her to the emergency department. She states now her symptoms have significantly improved and she would like to be discharged home. [facility] Medical History Arthritis Back pain Former smoker Gastric reflux GERD (gastroesophageal reflux disease) History of diverticulitis History of hiatal hernia History of pain when walking Hx of fracture of left hip Hydronephrosis Hypertension Hypothyroidism Post-menopausal Rheumatoid arthritis Thyroid disease Walker as ambulation aid Wears dentures Wears glasses Home Medications omeprazole 40 mg PO DAILY 03/27/17 [History Last Taken 04/01/21 05:15] cholecalciferol (vitamin D3) 1,000 unit PO DAILY 08/15/19 [History Last Taken Unknown] latanoprost 1 drp EACH EYE QHS 08/15/19 [History Last Taken Unknown] levothyroxine 37.5 mcg PO SUSA 08/15/19 [History Last Taken 08/27/19] levothyroxine 75 mcg PO MOTUWETHFR 08/15/19 [History Last Taken 04/01/21 05:15] amlodipine-benazepril 1 cap PO DAILY 03/27/21 [History Last Taken 04/01/21 05:15] cephalexin 500 mg PO TID 7 Days #21 cap 03/27/21 [Rx Last Taken Unknown] ondansetron 4 mg PO Q6H PRN PRN #10 tab 04/01/21 [Rx Last Taken Unknown] oxycodone-acetaminophen [Percocet] 1 tab PO Q8H PRN 5 Days #10 tab 04/01/21 [Rx Last Taken Unknown] phenazopyridine 100 mg PO TID PRN 15 Days #30 tablet 04/01/21 [Rx Last Taken Unknown] Allergy/AdvReac Type Severity Reaction Status Date / Time aspirin Allergy my heart Verified 04/01/21 06:21 races and they told me to never take it again Surgical History Hx laparoscopic cholecystectomy Hx of colonoscopy Hx of elbow replacement Hx of elbow surgery Hx of esophagogastroduodenoscopy Hx of hysterectomy Social History (Updated 04/01/21 @ 22:[address] He Jeffers DO) Smoking Status: Former smoker substance use type: does not use ROS ROS ED Constitutional Constitutional ED: Denies chills or weight loss Eyes Eyes: Denies change in vision or diplopia ENT ENT ED: Denies ear pain, rhinorrhea or sore throat Cardiovascular Cardiovascular: Denies chest pain, orthopnea, palpitations or racing heartbeat Respiratory/Chest Respiratory/Chest: Denies cough, dyspnea or orthopnea Gastrointestinal Gastrointestinal: Reports abdominal pain and nausea; Denies diarrhea or vomiting Genitourinary Genitourinary ED: Denies dysuria, hematuria or urinary frequency Musculoskeletal Musculoskeletal: Denies arthralgias or myalgias Integumentary Denies abscess or rash Neurologic Neurologic: Denies headache(s) or weakness Psychiatric Psychiatric: Denies anxiety, depression, suicidal ideation or suicidal thoughts Endocrine Endocrinology: Denies polydipsia, polyphagia or polyuria Allergic/Immunologic Allergic/Immunologic ED: Denies mouth swelling, tongue swelling or urticaria EXAM Physical Exam Const Vital Signs: 04/01/21 21:13 04/01/21 22:07 Temperature 96.8 F L Temperature Source Temporal Pulse Rate 106 H Respiratory Rate 16 Respiratory Effort Normal Respiratory Pattern Normal Blood Pressure 140/93 H Blood Pressure Mean 108 Pulse Ox 95 Oxygen Delivery Method Room Air Positive well nourished and well developed General Appearance ED: well developed HEENT Reports normocephalic, head/scalp atraumatic and moist mucous membranes Eyes PERRL and EOMs intact bilaterally Neck no lymphadenopathy, supple and no JVD Resp normal respiratory effort and clear to auscultation bilaterally Cardio regular rate, regular rhythm and no murmurs GI normal to inspection, nondistended, normoactive bowel sounds and non-tender Palpation: soft Back/Spine no CVA tenderness and normal ROM Extremity normal to inspection General Extremety ED: Negative for edema General Extremity: Negative for edema Neuro oriented x3 and CN's II-XII intact bilaterally Sensorium / Orientation: alert Motor Exam: strength 5/5 throughout Psych mental status grossly normal Mood & Affect: Negative for depressed or tearful Skin no rashes or lesions noted and no wounds MDM MDM MDM Narrative Medical decision making narrative: Patient was given a Zofran and oxycodone. As her pain has significantly improved she has pain medication at home I think is reasonable to send her home. She is currently supposed to take a Percocet every 8 hours. We can certainly have her take a breakthrough pain medication if need be before that time as long as she is not to sedated or a risk to herself. I will discuss with Dr. Garza. Discharge Plan Triage Chief Complaint: Other, Pain/Inj ED Provider: He Jeffers Dx/Rx/DC Orders Clinical Impression: Post-operative pain Instructions: Managing Post-Op Pain at Home Prescriptions: New ondansetron [ondansetron] 4 MG tablet 4 mg PO Q6H PRN PRN (Reason: Nausea) Qty: 10 RF: 0 No Action omeprazole 40 MG capsule,delayed release(DR/EC) 40 mg PO DAILY RF: 0 latanoprost 1 DROP bottle 1 drp EACH EYE QHS RF: 0 levothyroxine 75 MCG tablet 75 mcg PO MOTUWETHFR RF: 0 levothyroxine 75 MCG tablet 37.5 mcg PO SUSA RF: 0 cholecalciferol (vitamin D3) 1,000 UNIT tablet 1,000 unit PO DAILY RF: 0 amlodipine-benazepril 5-10 mg capsule 1 cap PO DAILY RF: 0 cephalexin 500 mg capsule 500 mg PO TID 7 Days Qty: 21 RF: 0 oxycodone-acetaminophen [Percocet] 5-325 mg tablet 1 tab PO Q8H PRN (Reason: pain) 5 Days Qty: 10 RF: 0 phenazopyridine [phenazopyridine] 100 MG tablet 100 mg PO TID PRN (Reason: pain (scale score 4-6)) 15 Days Qty: 30 RF: 0 Primary Care Provider: Barrington Flores Referrals: Slime Garza MD [STAFF PHYSICIAN] - Keep Emilia appointment Barrington Flores MD [Primary Care Provider] - As Needed Disposition Disposition: Home, Self Care
[2021-04-01] MEDS: oxyCODONE 5 MG Tablet PO (22:30)
[2021-04-01] MEDS: Ondansetron ODT 4 MG Tablet PO (22:30)
== END 2021-04-01 23:05 | disposition home or self-care (01) ==
LOC: ED 22:51
PROVIDERS: Emergency Provider Emergency Medicine; PCP Internal Medicine
DX: G89.18 Other acute postprocedural pain (principal); N13.2 Hydronephrosis with renal and ureteral calculous obstruction; M19.90 Unspecified osteoarthritis, unspecified site; Z87.891 Personal history of nicotine dependence; K21.9 Gastro-esophageal reflux disease without esophagitis; I10 Essential (primary) hypertension; E03.9 Hypothyroidism, unspecified; M06.9 Rheumatoid arthritis, unspecified; Z79.899 Other long term (current) drug therapy
CPT/HCPCS: 00873; 50590; 52332; 99282; J7120; J2405

== ENCOUNTER 2021-04-12 14:39 | Emergency (ER) | payer MEDICARE, SELFPAY ==
--- NOTE | 2021-04-12 14:41 | CT_ITS ---
STUDY: CT HEAD STROKE PROTOCOL W/O CONTRAST INJECTION REASON FOR EXAM: Female, 80 years old. Neuro deficit, acute, stroke suspected RADIATION DOSAGE (If Supplied By Facility): CTDIvol = ( 44.99 ) mGy, DLP = ( a 12.98 ) mGycm TECHNIQUE: Transaxial CT imaging of the brain was performed without administration of intravenous contrast material. Individualized dose optimization techniques were used for this CT. COMPARISON: Comparison is made with prior study 07/05/2010. FINDINGS: Normal soft tissue structures. Normal calvarium. There is evidence of a 5.3 cm x 2.2 cm intracerebral hematoma along the medial aspect of the left frontal lobe with evidence of surrounding edema and mass effect. There is also evidence of a linear 2.1 cm x 2 cm lipoma along the peripheral aspect of the left frontal lobe. There is evidence of the subdural hematoma within the cerebral falx. Small amount of subarachnoid hemorrhage is seen overlying the left temporal lobe. Normal basal ganglia and thalami. Normal brainstem. Normal cerebellum. Normal visualized paranasal sinuses. CT/STROKE Brain/Head without Cont IMPRESSION: Intracerebral hematoma with surrounding edema and mass effect involving the left frontal lobe as well as small subdural hematoma within the cerebral falx. Focal hemorrhage is also seen in the left temporal lobe. The cerebral N.B. : The above Results were Read Back by Humberto Jensen MD to Travis Page and understanding confirmed on 04/12/2021 14:53:46 (ET). Electronically Signed: Humberto Jensen MD at 14:54 EDT , Service support ,
[2021-04-12 14:46] VITALS: PULSE 117; RESP 22; TEMP 36.7; O2SAT 97; BMI 23.1
[2021-04-12 14:50] VITALS: BP 98/75; PULSE 119; RESP 22; TEMP 36.7; O2SAT 96
[2021-04-12 14:54] VITALS: BMI 23.1
--- NOTE | 2021-04-12 15:04 | EDS_ITS ---
HPI History of Present Illness Chief Complaint: Neuro S/Sx Informant: family and EMS Onset/Context/Timing Onset: Hours Context: Sudden Onset Timing: Continuous Onset: Uncertain. Last known well 899 Current Severity: Severe Maximum Severity: Severe Worsened by: Unknown Relieved by: Unknown Narrative Narrative: Patient is a 80-year-old woman with history of left hip fracture, hypertension, GERD, hypothyroidism, left elbow fracture and recent surgery for hydronephrosis due to ureteral stone. She presently is nonverbal. She is looking to the right side. She moves the left side. She does not move the right however there is resistance with movement. Spoke with daughters regarding CODE STATUS. They stated mother would not want CPR, intubation, life support or neurosurgery. They requested to wait with regards to hospice until their brothers arrived. They states that her brother to be here in 30 minutes. Prior similar symptoms: No Recent Illness/Hospitalization: Yes PFSH PFSH Medical History Arthritis Back pain Former smoker Gastric reflux GERD (gastroesophageal reflux disease) History of diverticulitis History of hiatal hernia History of pain when walking Hx of fracture of left hip Hydronephrosis Hypertension Hypothyroidism Post-menopausal Rheumatoid arthritis Thyroid disease Walker as ambulation aid Wears dentures Wears glasses Home Medications omeprazole 40 mg PO DAILY 03/27/17 [History Last Taken 04/01/21 05:15] levothyroxine 37.5 mcg PO SUSA 08/15/19 [History Last Taken 08/27/19] levothyroxine 75 mcg PO MOTUWETHFR 08/15/19 [History Last Taken 04/01/21 05:15] amlodipine-benazepril 1 cap PO DAILY 03/27/21 [History Last Taken 04/01/21 05:15] tamsulosin 0.4 mg PO DAILY 04/12/21 [History Last Taken Unknown] Allergy/AdvReac Type Severity Reaction Status Date / Time aspirin Allergy my heart Verified 04/01/21 06:21 races and they told me to never take it again Surgical History Hx laparoscopic cholecystectomy Hx of colonoscopy Hx of elbow replacement Hx of elbow surgery Hx of esophagogastroduodenoscopy Hx of hysterectomy Social History Smoking Status: Former smoker substance use type: does not use ROS ROS ED Review of Systems ROS Unobtainable: due to mental status EXAM Physical Exam Const Vital Signs: 04/12/21 14:46 04/12/21 14:50 Temperature 98.0 F 98.0 F Temperature Source Temporal Temporal Pulse Rate 117 H 119 H Respiratory Rate 22 H 22 H Blood Pressure 98/75 Blood Pressure Mean 82 Pulse Ox 97 96 Oxygen Delivery Method Nasal Cannula Nasal Cannula Oxygen Flow Rate (L/min) 2 2 Positive well nourished and well developed General Appearance ED: well developed and NAD HEENT Reports TM's clear and moist mucous membranes atraumatic Tympanic Membrane ED: Yes TM's clear Eyes PERRL and EOMs intact bilaterally General Eye ED: Negative for pale conjunctiva Neck supple and no JVD Chest Wall inspection of chest normal Resp normal respiratory effort and clear to auscultation bilaterally Cardio no murmurs Rate: regular rate Rhythm: regular rhythm Heart Sounds: S1 normal and S2 normal GI normal to inspection, nondistended, normoactive bowel sounds, soft to palpation and non-tender Back/Spine no CVA tenderness Thoracic Spine / Upper Back: Negative for thoracic spinal tenderness Lumbar Spine / Lower Back: Negative for lumbar spinal tenderness Extremity normal to inspection Neuro No oriented x3 and No CN's II-XII intact bilaterally Ridott Coma Scale: document GCS findings Spontaneous Withdraws to Pain None 9 Sensorium / Orientation: Negative for alert Motor Exam: Negative for strength 5/5 throughout Skin Lesions: no lesions Rashes: no rashes STROKE Vital Signs/Narrative: Vital Signs Temp Pulse Resp BP Pulse Ox 04/12/21 14:50 98.0 F 119 H 22 H 98/75 96 04/12/21 14:46 98.0 F 117 H 22 H 97 NIHSS Initial: 1a Level of Consciousness: 3 1b LOC Questions (Score 2 if aphasic/stupor): 2 1c LOC Commands (Only score 1st attempt): 2 2 Best Gaze (If aphasic, use reflexive mvmts.): 0 3 Visual: 0 4 Facial Palsy: 1 5 Motor Arm Right (UN = amputation/fusion): 2 5 Motor Arm Left: 0 6 Motor Leg Right: 3 6 Motor Leg Left: 0 7 Limb ataxia (Only + if out of proportion): 0 8 Sensory (Aphasia/stupor=0 or 1, coma=2): 2 9 Best Language: 3 10 Dysarthria (mute, coma=2, intubated=UN): 2 11 Extinction and Inattention (only scored if +): 2 Total Score: 22 MDM MDM MDM Narrative Medical decision making narrative: Concern for stroke and sepsis. Both sepsis and stroke work-up was initiated. CT of the head reveals intraparenchymal bleed with vasogenic edema as well as subdural and subarachnoid hemorrhage. Since this just occurred 1 would conclude that the vasogenic edema is due to a brain tumor most likely a glioblastoma. Family arrived. Discussed CODE STATUS. At this time she is no intubation, no life support and no CPR. They requested brothers to arrive prior to making her hospice. Son arrived. He did speak with sister. They are all in agreement DNR comfort care only and hospice care. Hospice was paged. Lab Data Labs: Laboratory Results - last 24 hr 04/12/21 04/12/21 04/12/21 15:00 15:00 15:00 WBC 13.7 H RBC 4.74 Hgb 14.3 Hct 44.2 MCV 93.2 MCH 30.2 MCHC 32.4 RDW Std Deviation 43.6 RDW Coeff of Jesse 12.6 Plt Count 333 MPV 9.7 Immature Gran % (Auto) 0.500 Neut % (Auto) 90.6 H Lymph % (Auto) 3.7 L [place] % (Auto) 5.0 Eos % (Auto) 0.0 Baso % (Auto) 0.2 Absolute Neuts (auto) 12.4 H Absolute Lymphs (auto) 0.51 L Nucleated RBC % 0 Differential Comment SEE COMMENT Platelet Estimate ADEQUATE RBC Morphology N CHROM Anisocytosis RARE Macrocytosis RARE Sodium 142 Potassium 3.3 L Chloride 105 Carbon Dioxide 23.0 Anion Gap 14 BUN 19 H Creatinine 1.15 H Estim Creat Clear Calc 31.37 Est GFR (MDRD) Af Amer 58 L Est GFR (MDRD) Non-Af 48 L BUN/Creatinine Ratio 16.5 Glucose 181 H Lactic Acid 3.2 H* Calcium 9.8 Total Bilirubin 1.40 H AST 16 ALT 14 Alkaline Phosphatase 108 Troponin I High Sens 14 Total Protein 7.9 Albumin 3.7 Globulin 4.2 Albumin/Globulin Ratio 0.9 Radiography Diagnostic Testing: Radiology Impression Brain CT 04/12/21 14:41 IMPRESSION: Intracerebral hematoma with surrounding edema and mass effect involving the left frontal lobe as well as small subdural hematoma within the cerebral falx. Focal hemorrhage is also seen in the left temporal lobe. The cerebral N.B. : The above Results were Read Back by Humberto Jensen MD to Travis Page and understanding confirmed on 04/12/2021 14:53:46 (ET). Electronically Signed: Humberto Jensen MD at 14:54 EDT , Service support , ADDENDUM: 04/12/21 1501 IMPRESSION: Intracerebral hematoma with surrounding edema and mass effect involving the left frontal lobe as well as small subdural hematoma within the cerebral falx. Focal hemorrhage is also seen in the left temporal lobe. The cerebral N.B. : The above Results were Read Back by Humberto Jensen MD to Travis Page and understanding confirmed on 04/12/2021 14:53:46 (ET). Electronically Signed: Humberto Jensen MD at 14:54 EDT , Service support , Chest X-Ray 04/12/21 15:22 IMPRESSION: Mild degree of vascular congestion. Electronically Signed: Humberto Jensen MD at 15:33 EDT , Service support , Stroke Documentation Questions Stroke Team Activated: Yes Reviewed Inclusion/Exclusion criteria: Yes Was Patient considered for Endovascular Intervention?: No IV Alteplase (t-PA) Administered: No No contraindications for IV Alteplase (t-PA) administration.: No Alteplase (t-PA) risks, benefits, alternative discussed: No Critical Care Time Critical Care Time: Yes Critical care time (excluding procedures): 30-74 minutes (31 minutes), Including time spent: (History, physical, documentation, review of prior records, family discussion, discussion with neurologist at [facility]), Discussing 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, Discussing w/Consultants and Arranging Admission or Transfer (Hospice nurse) Discharge Plan Triage Chief Complaint: Neuro S/Sx ED Provider: Travis Page Dx/Rx/DC Orders Clinical Impression: Intracranial hemorrhage, Subarachnoid hemorrhage, Acute subdural hematoma, Vasogenic brain edema, Acidosis, lactic, Leukocytosis Prescriptions: No Action omeprazole 40 MG capsule,delayed release(DR/EC) 40 mg PO DAILY RF: 0 levothyroxine 75 MCG tablet 75 mcg PO MOTUWETHFR RF: 0 levothyroxine 75 MCG tablet 37.5 mcg PO SUSA RF: 0 amlodipine-benazepril 5-10 mg capsule 1 cap PO DAILY RF: 0 tamsulosin 0.4 mg capsule 0.4 mg PO DAILY RF: 0 Primary Care Provider: Barrington Flores Referrals: Barrington Flores MD [Primary Care Provider] - Disposition Disposition: Acute Care Hospital Discharge Location: [facility]
--- NOTE | 2021-04-12 15:04 | NURSING ---
FACESHEET FAXED TO [facility]
[2021-04-12 15:10] LABS: Absolute Lymphocyte Count 0.51 X10^3/uL (0.83-4.51); Absolute Neutrophil Count 12.4 X10^3/uL (2.0-7.7); Basophil# 0.03 X10^3/uL; Basophil% 0.2 % (0-1); Hematocrit 44.2 % (37-47); Hemoglobin 14.3 g/dL (12.0-15.0); Lymphocyte # 0.51 X10^3/ul (0.83-4.51); Lymphocyte % 3.7 % (19-41); Mean Corp Hgb Conc 32.4 g/dL (32-36); Mean Corpuscular Hgb 30.2 pg (27.0-32.0); Mean Corpuscular Volume 93.2 fL (81-99); Mean Platelet Vol. 9.7 fl (6.2-12.0); Monocyte# 0.69 X10^3/uL; NRBC Flagged by Analyzer 0 % (0-5); Neutrophil # 12.44 X10^3/uL (2.7-7.7); Neutrophil % 90.6 % (47-70); POSITIVE DIFFERENTIAL YES; Platelet Count 333 K/mm3 (150-450); RBC Distribution Width CV 12.6 % (11.6-14.6); RBC Distribution Width SD 43.6 fl (35.1-43.9); Red Blood Count 4.74 M/mm3 (4.2-5.4); White Blood Count 13.7 K/mm3 (4.4-11.0)
[2021-04-12 15:12] LABS: Differential Indicated SCAN CRITERIA MET
--- NOTE | 2021-04-12 15:16 | CM.ED ---
JUAN MIGUEL Note Referral Source: Case Find Referral Reason: Stroke Alert SW responded to ED stroke alert. No family present. SW remains available if needs arise. Plan: JUAN MIGUEL to remain available Jaylyn FLOWERS
--- NOTE | 2021-04-12 15:22 | RAD_ITS ---
STUDY: X-RAY CHEST REASON FOR EXAM: Female, 80 years old. Fever TECHNIQUE: Single AP portable view of the chest. COMPARISON: Comparison is made with prior study of 08/27/2019. FINDINGS: EKG electrodes are seen. Mild degree of vascular congestion. There is no demonstrated pleural abnormality. There is borderline cardiomegaly. Normal mediastinum and callie. Normal visualized pulmonary arteries. There is atherosclerotic calcification of the aortic arch with tortuosity. There are diffuse degenerative changes of the visualized thoracic spine. There is degenerative osteoarthritis of the bilateral shoulders. Moderate sized hiatal hernia. RAD/Chest 1 View (Portable) IMPRESSION: Mild degree of vascular congestion. Electronically Signed: Humberto Jensen MD at 15:33 EDT , Service support ,
[2021-04-12 15:38] LABS: ALB/GLOB Ratio 0.9 RATIO (0.9-2.4); AST(SGOT) 16 U/L (15-37); Alanine Aminotransfer ALT/SGPT 14 U/L (13-56); Albumin, Serum 3.7 g/dL (3.2-5.0); Alkaline Phosphatase 108 U/L (45-117); Anion Gap 14 (5-15); BUN 19 mg/dL (7-18); BUN/Creat Ratio 16.5 RATIO (10-20); Calcium,Total 9.8 mg/dL (8.5-10.1); Chloride 105 mmol/L (98-107); Creatinine, Serum 1.15 mg/dL (0.55-1.02); EST Glomerular Filtration Rate 48 mL/min (>60); Est Glom Filt Rate - Afr Amer 58 mL/min (>60); Estimated Creatinine Clearance 31.37 ml/min; Globulin 4.2 g/dL (2.2-4.2); Glucose 181 mg/dL (74-106); Potassium 3.3 mmol/L (3.5-5.1); Protein, Total 7.9 g/dL (6.4-8.2); Sodium Level 142 mmol/L (136-145); Troponin-I HS 14 pg/mL (3.0-54.0)
[2021-04-12 15:46] LABS: Anisocytosis RARE; Platelet Estimate ADEQUATE (ADEQ); Red Cell Morphology N CHROM NORMAL (NORM C&C)
[2021-04-12 15:47] LABS: Macrocytosis RARE
[2021-04-12 15:55] LABS: Lactic Acid 3.2 mmol/L (0.4-1.9)
--- NOTE | 2021-04-12 15:59 | ED.RN ---
Sons here and agree with sisters to place patient in Hospice care.
--- NOTE | 2021-04-12 16:19 | NURSING ---
FAXED CHART TO HOSPICE
--- NOTE | 2021-04-12 16:48 | ED.RN ---
Hospice here to eval pt. Family aware she will be transferred to hospice.
--- NOTE | 2021-04-12 16:51 | CHAPLAIN ---
Type of Pastoral Visit ___ Initial Visit ___ Follow-up Visit ___ On-call Visit ___ General Patient Visit ___ Spiritual Assessment ___ Family Conference ___ Bereavement _x__ Rapid Response ___ Code Blue ___ Other (describe below) Pastoral Care Referral From ___ Patient ___ Family ___ Nurse ___ Physician ___ Powerhouse Laborer ___ Technical Writing Lead/Mgr _x__ Other (describe below) Sacrament/Intervention _x__ Active listening ___ Anointing ___ Moravian ___ Bereavement ___ Communion ___ Rochelle exploration ___ ___ Life review ___ Prayer ___ Reconciliation ___ Sacrament of Sick _x__ Supportive presence ___ Wedding ___ Other (describe below) Pastoral Comments came to ED for stroke alert and made contact with two daughters that were there with the patient; was present when DR gave very poor prognosis of recovery; offer of support given at this time and then later after daughters requested time alone to talk; waited for several minutes for other family to arrive but they did not come immediately; daughter declined further support at this time
[2021-04-12 17:20] VITALS: BP 133/89; PULSE 131; RESP 20; O2SAT 93
== END 2021-04-12 17:23 | disposition short-term general hospital (02) ==
PROVIDERS: Emergency Provider Emergency Medicine; PCP Internal Medicine
DX: I60.9 Nontraumatic subarachnoid hemorrhage, unspecified (principal); I62.01 Nontraumatic acute subdural hemorrhage; G93.6 Cerebral edema; D72.829 Elevated white blood cell count, unspecified; E87.2 Acidosis; R29.722 NIHSS score 22; I10 Essential (primary) hypertension; K21.9 Gastro-esophageal reflux disease without esophagitis; E03.9 Hypothyroidism, unspecified; M06.9 Rheumatoid arthritis, unspecified; Z66 Do not resuscitate; Z79.899 Other long term (current) drug therapy; Z87.891 Personal history of nicotine dependence
CPT/HCPCS: 70450; 71045; 80048; 80053; 83605; 84484; 85025; 87040; 99285; J7040; A4216